=== PATIENT | female | born 1955 | race Caucasian/White ===

== ENCOUNTER → 2016-08-03 | Outpatient (CLI) | payer OTHER ==
[~2016-08-03] MED LIST: BLACK COHOSH40 MG PO; CALCIUM + D 6001 TA1 PO; CELEXA PO; DETROL PO; DULERA 100 MCG/13 GM IH; FLAGYL PO; FLONASE 0.05% N16 G1; FOLIC ACID PO; GLUCOPHAGE500 MG PO; HYDROCODON-ACE1 EACH PO; INDERAL20 MG PO; IRON1 TAB PO; LANTUS100 U/ML SUBQ; LEVEMIR100 UNITS/ SUBQ; LEVOTHYROXINE50 MCG PO; LIALDA1.2 G PO; LOTENSIN40 MG PO; MULTI-DAY1 TAB PO; NOVOLOG100 U/ML; PERCOCET5/325 PO; PREMARIN0.45 MG PO; REMICADE IV; SIMVASTATIN40 MG PO; TAMOXIFEN CITRA20 MG PO; TAXOTERE; VICODIN 5/1 TAB 5/50 PO; VITAMIN B SUBQ; VITAMIN B122500 MCG PO; VYTORIN 10-20 T1 TAB PO; WAL-ZYR10 M1 PO; XALATAN OU; ZEGERID 20 MG C1 CAP PO; [UNRECOGNIZED DRUG - OTHER] SUBQ
--- NOTE | ~2016-08-03 | MY26 ---
[facility] A Service of [facility] RADIOLOGY TEXT RESULTS PATIENT: KESHIA ESCOBAR LOCATION: [facility] : 53 UNIT #: [id number] AGE: [address]: Arnold Santos MD SEX: F ORDER DR: [id number] [address] [id number] O MR#: [id number] Acc #: [id number] NAME: KESHIA ESCOBAR : 1955 SEX: F STUDY DATE/TIME: 08/03/2016 14:33 UNIT: [facility] ROOM: STUDY DESCRIPTION: [facility] DIAGNOSTIC W/ CAD BILAT Attending Physician: Arnold Santos M.D. Referring Physician: Arnold Santos M.D. Ordering Physician: Arnold Santos M.D. Primary Care Physician: Arnold Santos M.D. MEDICAL IMAGING REPORT This report is preliminary unless electronic signature is present EXAM Bilateral digital diagnostic mammogram. INDICATIONS Right breast cancer post lumpectomy. Followup. PROCEDURE Bilateral CC, MLO and XCCL views. Right true lateral view. Images obtained on a digital mammography unit. FDA-approved CAD device utilized. COMPARISON 07/31/2015 FINDINGS Post lumpectomy change, upper right breast is similar. There are some associated dystrophic calcifications that are slightly increased. No suspicious calcifications are seen. No dominant mass. Breasts are predominately fat replaced. IMPRESSION Benign bilateral diagnostic mammogram. Patients over the age of 40 are entered into a reminder system with target due date for the next mammogram. A result letter will also be sent to the patient. BIRADS: 2 Benign finding. Dictated by... River Jones M.D. [facility] A Service of [facility] RADIOLOGY TEXT RESULTS PATIENT: KESHIA ESCOBAR LOCATION: [facility] : 53 UNIT #: [id number] AGE: [address]: Arnold Santos MD SEX: F ORDER DR: THIS IS AN ELECTRONICALLY VERIFIED REPORT River Jones M.D. at 08/04/2016 7:08 AM Miguel TD: 08/03/2016 19:26 JOB #: [id number] MEDICAL IMAGING REPORT Page 1 of 1 COPY
== END | disposition home or self-care (01) ==
LOC: CWCC 14:11
DX: C50.911 Malignant neoplasm of unspecified site of right female breast (principal); Z92.3 Personal history of irradiation
CPT/HCPCS: G0204